=== PATIENT | female | born 1955 | race Caucasian/White ===

== ENCOUNTER 2017-09-18 22:11 | Emergency (ER) | payer MEDICARE, MEDICAID ==
[~2017-09-18] VITALS: Ht 157.5 cm; Wt 70.5 kg
[~2017-09-18 22:11] MED LIST: ACTOS30 MG PO; AMARYL4 MG PO; ASPI325T6 PO; CARAFATE 1GM1 G PO; CELEXA 20MG20 MG/TAB PO; GLUCOPHAGE500 MG/TAB PO; LIPITOR 80MG80 MG PO; NORCO 325 MG-51 TAB PO; NORCO 325 MG-7.1 TAB PO; NORVASC 5MG5 MG/TAB PO; NOVOLOG FLEX100 U/ML SQ; PERCOCET 325 MG1 TA2 PO; PHENERGAN 25 TA25 MG PO; PREDNISONE 5MG5 MG PO; PREDNISONE10 MG PO; PRIL40 PO; PRINIVIL40 MG PO; TAMIFLU 75MG75 MG PO; TYLENOL 325MG325 MG PO; ZANTAC 150150 MG PO; ZOFRAN ODT4 MG PO
[2017-09-18 22:48] LABS: BASO # 0.1 (0.0-0.2); BASO % 0.6 % (0.0-2.0); EOS # 0.6 (0.0-0.7); EOS % 4.3 % (0-4.0); GRAN # 8.5 (1.4-6.5); GRAN % 65.2 % (42.2-75.2); LYMPH # 2.9 (1.2-3.4); MEAN CELL VOLUME 98 fl (80.0-100.0); MEAN CORPUSCULAR HGB CONC 33 g/dl (33.0-37.0); MEAN PLATELET VOLUME 9.6 fl (7.4-10.4); MONO % 7.4 % (1.7-9.3); PLATELET COUNT 334 K/mm3 (130-400); RED BLOOD COUNT 2.99 M/mm3 (4.10-5.30); REDCELL DISTRIBUTION WIDTH-CV 13.5 % (11.5-14.5)
[2017-09-18 23:00] LABS: HEMATOCRIT 29.4 % (37.0-47.0); HEMOGLOBIN 9.6 g/dl (12.5-16.0); MEAN CORPUSCULAR HEMOGLOBIN 32 pg (27.0-31.0)
[2017-09-18 23:08] LABS: ALBUMIN 4.4 gm/dL (3.5-5.0); BILIRUBIN,TOTAL 0.3 mg/dL (0.0-1.0); CALCIUM 8.7 mg/dL (8.4-10.2); CREATININE, serum 1.24 mg/dL (0.52-1.25); POTASSIUM 4.6 mmol/L (3.4-5.0); TOTAL PROTEIN 7.9 gm/dL (6.4-8.2)
[2017-09-18] MEDS ORDERED: AMARYL1 MG PO (23:11)
[2017-09-18] MEDS ORDERED: COLACE 100100 MG/CAP PO (23:11)
[2017-09-18] MEDS ORDERED: MSIR30 MG PO (23:14)
[2017-09-18] MEDS ORDERED: LASIX 40MG TABL40 MG PO (23:14)
[2017-09-19 01:00] VITALS: BP 105/77; PULSE 135
== END 2017-09-19 01:00 | disposition short-term general hospital (02) ==
LOC: COL.ER 22:11
PROVIDERS: Emergency Medicine
DX: S09.90XA Unspecified injury of head, initial encounter (principal); S82.252A Displaced comminuted fracture of shaft of left tibia, initial encounter for closed fracture; S82.452A Displaced comminuted fracture of shaft of left fibula, initial encounter for closed fracture; E11.9 Type 2 diabetes mellitus without complications; I10 Essential (primary) hypertension; K21.9 Gastro-esophageal reflux disease without esophagitis; E78.5 Hyperlipidemia, unspecified; Z96.653 Presence of artificial knee joint, bilateral; Z79.84 Long term (current) use of oral hypoglycemic drugs; Z79.52 Long term (current) use of systemic steroids; W01.0XXA Fall on same level from slipping, tripping and stumbling without subsequent striking against object, initial encounter; Y92.121 Bathroom in nursing home as the place of occurrence of the external cause
CPT/HCPCS: J1170; J2405; J2765; J3010; J7030

== ENCOUNTER → 2017-10-13 | Outpatient (REF) ==
[~2017-10-13] MED LIST changes: +ALMACONE 360 M360 ML PO; +AMARYL 2MG T2 MG/TAB PO; +ASPIRIN 32325 MG/TAB PO; +COLACE 100100 MG/CAP PO; +DRISDOL50000 IU PO; +DULCOLAX S10 MG/SUPP RC; +DULCOLAX TAB5 MG PO; +GOOD NEIGH1200 MG/15 PO; +IMODIUM AD1 MG/5 ML PO; +LASIX 40MG TABL40 MG PO; +MELATONIN5 M1 SL; +MIRALAX PA17 GM/Dose PO; +MSIR30 MG PO; +OS-CAL 500 + D1 TAB PO; +PERCOCET 325 MG1 TA3 PO; +PRILOSEC 20MG20 MG PO; +PRINIVIL10 MG PO; -PRINIVIL40 MG PO; +ROBAXIN 75750 MG/TAB PO; +SENOKOT S 50 MG1 TAB PO; +TYLENOL SU650 MG/SUP RC
[2017-10-13 12:46] LABS: MEAN CELL VOLUME 104 fl (80.0-100.0); MEAN CORPUSCULAR HGB CONC 31 g/dl (33.0-37.0); MEAN PLATELET VOLUME 10.8 fl (7.4-10.4); PLATELET COUNT 455 K/mm3 (130-400); RED BLOOD COUNT 3.13 M/mm3 (4.10-5.30); REDCELL DISTRIBUTION WIDTH-CV 15.1 % (11.5-14.5)
[2017-10-13 12:48] LABS: HEMATOCRIT 32.5 % (37.0-47.0); HEMOGLOBIN 10.1 g/dl (12.5-16.0); MEAN CORPUSCULAR HEMOGLOBIN 32 pg (27.0-31.0)
[2017-10-13 13:18] LABS: ALBUMIN 4.2 gm/dL (3.5-5.0); BILIRUBIN,TOTAL 0.7 mg/dL (0.0-1.0); CALCIUM 8.9 mg/dL (8.4-10.2); CREATININE, serum 3.45 mg/dL (0.52-1.25); POTASSIUM 5.3 mmol/L (3.4-5.0); TOTAL PROTEIN 7.2 gm/dL (6.4-8.2)
[2017-10-13 13:31] LABS: BAND 33 % (0-10); LYMPHOCYTE 6 % (20.0-51.0); NEUTROPHILS 58 % (42.0-75.2); PLATELET ESTIMATE INCREASED (NORMAL)
[2017-10-13 13:32] LABS: HYPOCHROMIA 1+
== END ==
LOC: ZCOL.LAB 12:41
PROVIDERS: Internal Medicine
DX: S82.202D Unspecified fracture of shaft of left tibia, subsequent encounter for closed fracture with routine healing (principal)

== ENCOUNTER → 2018-03-27 | Outpatient (REF) ==
[~2018-03-27] MED LIST changes: +ENULOSE10 GM/151 PO; +FOLIC ACID 11 MG/TA1 PO; +MS CONTIN 115 MG/TAB PO; +MS CONTIN 330 MG/TAB PO; +VITAMIN B12 1541 TAB PO; +ZESTRIL 10MG10 MG PO
== END ==
LOC: ZCOL.LAB 22:18
DX: Z01.89 Encounter for other specified special examinations (principal)

== ENCOUNTER → 2018-04-22 | Outpatient (CLI) | payer MEDICAID | LOC: MC.RAD 08:28 | DX: Z12.31 Encounter for screening mammogram for malignant neoplasm of breast (principal); N64.89 Other specified disorders of breast ==

== ENCOUNTER 2018-08-22 10:29 | Emergency (ER) | payer MEDICARE, MEDICAID ==
[~2018-08-22] VITALS: Ht 154.9 cm; Wt 72.7 kg
[2018-08-22 10:30] VITALS: TEMP 99.2
[2018-08-22 11:11] LABS: BASO # 0.1 (0.0-0.2); BASO % 0.3 % (0.0-2.0); EOS # 0.4 (0.0-0.7); EOS % 1.6 % (0-4.0); GRAN # 18.4 (1.4-6.5); GRAN % 83.6 % (42.2-75.2); HEMOGLOBIN 10.8 g/dl (12.5-16.0); LYMPH # 1.7 (1.2-3.4); LYMPH % 7.7 % (20.0-51.0); MEAN CELL VOLUME 100 fl (80.0-100.0); MEAN CORPUSCULAR HEMOGLOBIN 32 pg (27.0-31.0); MEAN CORPUSCULAR HGB CONC 32 g/dl (33.0-37.0); MEAN PLATELET VOLUME 10.6 fl (7.4-10.4); MONO # 1.3 (0.1-0.6); PLATELET COUNT 269 K/mm3 (130-400); RED BLOOD COUNT 3.43 M/mm3 (4.10-5.30); REDCELL DISTRIBUTION WIDTH-CV 14.2 % (11.5-14.5)
[2018-08-22 11:13] LABS: HEMATOCRIT 34.2 % (37.0-47.0)
[2018-08-22 11:23] LABS: ALANINE AMINOTRANSFERASE 12 U/L (9-52); ALBUMIN 3.6 gm/dL (3.5-5.0); ALKALINE PHOSPHATASE 81 U/L (50-136); ANION GAP 8 mmol/L (7-16); AST,SGOT 14 U/L (15-37); BLOOD UREA NITROGEN 10 mg/dL (7-17); CALCIUM 8.5 mg/dL (8.4-10.2); CARBON DIOXIDE 25 mmol/L (22-30); CHLORIDE 102 mmol/L (98-107); CREATININE, serum 0.65 mg/dL (0.52-1.25); GLUCOSE 183 mg/dL (74-106); LIPASE 30 U/L (23-300); POTASSIUM 3.6 mmol/L (3.4-5.0); SODIUM 136 mmol/L (137-145)
[2018-08-22 11:35] LABS: TROPONIN-I < 0.012 ng/mL (0.000-0.034)
[2018-08-22] MEDS ORDERED: ASPERCREME85G TP (12:13)
[2018-08-22] MEDS ORDERED: CORRECTIVE LAXAT5 MG PO (12:16)
[2018-08-22 12:57] LABS: COLLECTION METHOD CATHETER
[2018-08-22 13:02] LABS: PH 5 (5-8); SQUAMOUS EPITHELIAL 0-2 /hpf; URINE APPEARANCE Clear; URINE BACTERIA None Seen /hpf; URINE BILIRUBIN Negative (NEGATIVE); URINE BLOOD 2+ (NEGATIVE); URINE COLOR Yellow; URINE GLUCOSE Negative (NEGATIVE); URINE KETONE Trace (NEGATIVE); URINE LEUKOCYTE ESTERASE Negative (NEGATIVE); URINE NITRATE Negative (NEGATIVE); URINE PROTEIN(semi-quant) Negative (NEGATIVE); URINE RBC 0-2 /hpf; URINE UROBILINOGEN Negative (NEGATIVE); URINE WBC 0-2 /hpf
[2018-08-22] MEDS ORDERED: GOOD SENSE ANTI-IT1% TP (13:57)
[2018-08-22] MEDS ORDERED: JANUVIA 100MG100 MG PO (13:58)
[2018-08-22] MEDS ORDERED: XALATAN EYE DROPS OU (13:59)
[2018-08-22] MEDS ORDERED: LIPITOR20 MG PO (14:01)
[2018-08-22 15:18] VITALS: BP 117/67; PULSE 82
== END 2018-08-22 15:59 ==
LOC: COL.ER 10:29
PROVIDERS: Emergency Medicine
DX: R07.89 Other chest pain (principal); D72.829 Elevated white blood cell count, unspecified; I10 Essential (primary) hypertension; M06.9 Rheumatoid arthritis, unspecified; E11.9 Type 2 diabetes mellitus without complications; Z79.84 Long term (current) use of oral hypoglycemic drugs; Z90.49 Acquired absence of other specified parts of digestive tract
CPT/HCPCS: J7030; Q9967

== ENCOUNTER → 2018-10-07 | Outpatient (CLI) | payer MEDICARE, MEDICAID ==
[~2018-10-07] MED LIST changes: +ASPERCREME85G TP; +CORRECTIVE LAXAT5 MG PO; +GOOD SENSE ANTI-IT1% TP; +JANUVIA 100MG100 MG PO; +LIPITOR20 MG PO; +XALATAN EYE DROPS OU
[2018-10-07 20:07] LABS: COLLECTION METHOD CLEAN CATCH
[2018-10-07 20:16] LABS: BASO % 0.3 % (0.0-2.0); EOS # 0.2 (0.0-0.7); EOS % 1.8 % (0-4.0); GRAN # 9.8 (1.4-6.5); GRAN % 76.7 % (42.2-75.2); HEMOGLOBIN 11.7 g/dl (12.5-16.0); LYMPH # 1.9 (1.2-3.4); LYMPH % 15.1 % (20.0-51.0); MEAN CELL VOLUME 98 fl (80.0-100.0); MEAN CORPUSCULAR HEMOGLOBIN 31 pg (27.0-31.0); MEAN CORPUSCULAR HGB CONC 32 g/dl (33.0-37.0); MEAN PLATELET VOLUME 11.9 fl (7.4-10.4); MONO # 0.7 (0.1-0.6); MONO % 5.5 % (1.7-9.3); PLATELET COUNT 119 K/mm3 (130-400); RED BLOOD COUNT 3.79 M/mm3 (4.10-5.30); REDCELL DISTRIBUTION WIDTH-CV 14.1 % (11.5-14.5)
[2018-10-07 20:19] LABS: ALBUMIN 3.5 gm/dL (3.5-5.0); BILIRUBIN,TOTAL 0.7 mg/dL (0.0-1.0); CALCIUM 8.7 mg/dL (8.4-10.2); CREATININE, serum 0.84 mg/dL (0.52-1.25); POTASSIUM 4.3 mmol/L (3.4-5.0); TOTAL PROTEIN 6.7 gm/dL (6.4-8.2)
[2018-10-07 20:28] LABS: MUCOUS Present /lpf; PH 5 (5-8); URINE APPEARANCE Cloudy; URINE BACTERIA Occasional /hpf; URINE BILIRUBIN Negative (NEGATIVE); URINE BLOOD 1+ (NEGATIVE); URINE COLOR Yellow; URINE GLUCOSE 2+ (NEGATIVE); URINE KETONE Trace (NEGATIVE); URINE LEUKOCYTE ESTERASE 2+ (NEGATIVE); URINE NITRATE Negative (NEGATIVE); URINE PROTEIN(semi-quant) 1+ (NEGATIVE); URINE RBC None Seen /hpf; URINE UROBILINOGEN Negative (NEGATIVE)
== END ==
LOC: ZCOL.LAB 18:42 → COL.LAB 18:42
PROVIDERS: Internal Medicine
DX: N39.0 Urinary tract infection, site not specified (principal); R11.11 Vomiting without nausea; R50.9 Fever, unspecified

== ENCOUNTER → 2018-10-20 | Outpatient (CLI) | payer MEDICARE, MEDICAID ==
[2018-10-20 08:34] LABS: CHOLESTEROL RISK RATIO 2.2
== END ==
LOC: COL.LAB 07:48
PROVIDERS: Nurse Practitioner Family
DX: E11.59 Type 2 diabetes mellitus with other circulatory complications (principal)

== ENCOUNTER → 2019-05-04 | Outpatient (CLI) | payer MEDICARE, MEDICAID ==
[2019-05-04 09:57] LABS: BASO # 0.1 (0.0-0.2); BASO % 0.5 % (0.0-2.0); EOS # 1.2 (0.0-0.7); EOS % 7.7 % (0-4.0); GRAN # 10.1 (1.4-6.5); LYMPH # 2.4 (1.2-3.4); LYMPH % 16.2 % (20.0-51.0); MEAN CELL VOLUME 98 fl (80.0-100.0); MEAN CORPUSCULAR HGB CONC 32 g/dl (33.0-37.0); MEAN PLATELET VOLUME 10.4 fl (7.4-10.4); MONO # 1.2 (0.1-0.6); MONO % 7.9 % (1.7-9.3); PLATELET COUNT 288 K/mm3 (130-400); RED BLOOD COUNT 3.07 M/mm3 (4.10-5.30)
[2019-05-04 10:08] LABS: HEMATOCRIT 30.2 % (37.0-47.0); HEMOGLOBIN 9.7 g/dl (12.5-16.0); MEAN CORPUSCULAR HEMOGLOBIN 32 pg (27.0-31.0)
[2019-05-04 10:09] LABS: ALBUMIN 3.4 gm/dL (3.5-5.0); BILIRUBIN,TOTAL 0.3 mg/dL (0.0-1.0); CALCIUM 8.8 mg/dL (8.4-10.2); CREATININE, serum 2.36 (0.52-1.25); POTASSIUM 4.8 mmol/L (3.4-5.0); TOTAL PROTEIN 6.4 gm/dL (6.4-8.2)
[2019-05-04 10:33] LABS: ERYTHROCYTE SEDIMENTATION RATE 67 mm/hr (0-30)
== END ==
LOC: ZCOL.LAB 09:46
PROVIDERS: Nurse Practitioner Family
DX: R50.9 Fever, unspecified (principal); R45.1 Restlessness and agitation

== ENCOUNTER → 2019-05-04 | Outpatient (CLI) | payer MEDICARE, MEDICAID | LOC: COL.RAD 11:32 | DX: K44.9 Diaphragmatic hernia without obstruction or gangrene (principal); J98.11 Atelectasis; M19.011 Primary osteoarthritis, right shoulder; M19.012 Primary osteoarthritis, left shoulder; R05 Cough ==

== ENCOUNTER → 2019-05-09 | Outpatient (CLI) | payer MEDICARE, MEDICAID | LOC: COL.RAD 07:53 | DX: S22.32XA Fracture of one rib, left side, initial encounter for closed fracture (principal); R05 Cough ==

== ENCOUNTER → 2021-07-10 | Outpatient (CLI) | payer MEDICARE, MEDICAID | LOC: MC.RAD 13:25 | DX: Z12.31 Encounter for screening mammogram for malignant neoplasm of breast (principal) ==

== ENCOUNTER → 2021-09-11 | Outpatient (CLI) | payer MEDICARE, MEDICAID ==
[~2021-09-11] MED LIST changes: +ALBUTEROL0.83 MG/ML IH; +ASPIRIN E.C. 8181 MG PO; +B-121000 MCG PO; +CEPHALEXIN500 M1 PO; +CLARITIN 1010 MG/TAB PO; +CYMBALTA 60MG60 MG PO; +K-DUR20 MEQ PO; +LEVEMIR100 U/ML SQ; +MAG-OX 400400 MG/TAB PO; +MUCINEX DM 30 M1 TE1 PO; +OMNICEF 300MG300 MG PO; +PEPCID 20MG TAB20 MG PO; +PERC2.5TAB PO; -PERCOCET 325 MG1 TA3 PO; -PRILOSEC 20MG20 MG PO; +SYSTANE BALANCE10 M1 OP; +VITAMIND3 5000 PO; +ZOFRAN 4MG T4 MG/TAB PO
[2021-09-11 12:38] LABS: BASO # 0.1 K/mm3 (0.0-0.2); BASO % 0.6 % (0.0-2.0); EOS # 0.2 K/mm3 (0.0-0.7); EOS % 1.7 % (0.0-4.0); GRAN # 11.5 K/mm3 (1.4-6.5); GRAN % 79.9 % (42.2-75.2); HEMATOCRIT 45.7 % (37.0-47.0); HEMOGLOBIN 14.6 g/dl (12.5-16.0); LYMPH # 1.5 K/mm3 (1.2-3.4); LYMPH % 10.3 % (20.0-51.0); MEAN CELL VOLUME 97 fl (80.0-100.0); MEAN CORPUSCULAR HEMOGLOBIN 31 pg (27-31); MEAN CORPUSCULAR HGB CONC 32 g/dl (33.0-37.0); MEAN PLATELET VOLUME 13.3 fl (7.4-10.4); MONO % 7.1 % (1.7-9.3); PLATELET COUNT 287 K/mm3 (130-400); RED BLOOD COUNT 4.72 M/mm3 (4.10-5.30); REDCELL DISTRIBUTION WIDTH-CV 14.7 % (11.5-14.5)
[2021-09-11 12:55] LABS: ALBUMIN 3.3 gm/dL (3.4-4.8); BILIRUBIN,TOTAL 0.7 mg/dL (0.2-1.2); CREATININE, serum 1.55 mg/dL (0.57-1.11); POTASSIUM 3.5 mmol/L (3.5-4.5); TOTAL PROTEIN 7.4 gm/dL (6.2-8.1)
[2021-09-11 13:15] LABS: THYROID STIMULATING HORMONE 1.236 uIU/mL (0.350-4.940); TROPONIN-I 0.017 ng/mL (0.00-0.033)
== END ==
LOC: ZCOL.LAB 11:58
PROVIDERS: Internal Medicine
DX: R11.0 Nausea (principal); R41.82 Altered mental status, unspecified; I10 Essential (primary) hypertension

== ENCOUNTER → 2021-09-12 | Outpatient (CLI) | payer MEDICARE, MEDICAID ==
[2021-09-12 12:03] LABS: COLLECTION METHOD CATHETER
[2021-09-12 12:15] LABS: PH 5 (5-8); URINE APPEARANCE Hazy (CLEAR/HAZY); URINE BILIRUBIN Positive (NEGATIVE); URINE COLOR Yellow (YELLOW); URINE GLUCOSE 4+ (NEGATIVE); URINE KETONE 2+ (NEGATIVE); URINE NITRATE Negative (NEGATIVE); URINE PROTEIN(semi-quant) 1+ (NEGATIVE); URINE UROBILINOGEN Negative (NEGATIVE)
[2021-09-12 12:16] LABS: URINE BLOOD Negative (NEGATIVE); URINE LEUKOCYTE ESTERASE Negative (NEGATIVE)
[2021-09-12 12:18] LABS: MUCOUS Present (NOT PRESENT); SQUAMOUS EPITHELIAL None Seen /hpf (0-10); URINE BACTERIA Rare /hpf (NONE SEEN)
== END ==
LOC: ZCOL.LAB 11:49
DX: N39.0 Urinary tract infection, site not specified (principal)

== ENCOUNTER → 2021-10-23 | Outpatient (CLI) | payer MEDICARE, MEDICAID | LOC: COL.RAD 09:03 | DX: K85.90 Acute pancreatitis without necrosis or infection, unspecified (principal); Z90.49 Acquired absence of other specified parts of digestive tract ==